=== PATIENT | male | born 1980 | race African-American/Black ===

== ENCOUNTER 2024-04-18 08:54 | Emergency (ER) | payer SELFPAY ==
[~2024-04-18] VITALS: Ht 177.8 cm; Wt 88.0 kg
[2024-04-18 08:56] VITALS: BP 143/86; PULSE 93; RESP 18; TEMP 97.5; O2SAT 100
[2024-04-18] MEDS ORDERED: NALOXONE HCL 1MG/ML 2ML VIAL ONE (09:33)
[2024-04-18] MEDS: NALOXONE HCL 1MG/ML 2ML VIAL IV ONE (09:42)
[2024-04-18] MEDS ORDERED: ALBU18HF2 INH (10:24)
== END 2024-04-18 12:38 | disposition home or self-care (01) ==
LOC: ER 09:22
DX: J45.901 Unspecified asthma with (acute) exacerbation (principal)
CPT/HCPCS: 99283; J2310; Z7610